=== PATIENT | female | born 1960 | race Caucasian/White ===

== ENCOUNTER 2018-05-12 15:35 | Emergency (ER) | payer OTHER ==
[2018-05-12 16:28] LABS: ADD MAN DIFF? NO
[2018-05-12] MEDS: KETOROLAC 30 MG INJ IV (16:31)
[2018-05-12 16:32] LABS: BASOPHIL # 0.1 10^3/ul (0.0-0.1); BASOPHILS % 0.3 % (0.0-2.0); EOSINOPHILS % 0.1 % (0.0-7.0); HEMOGLOBIN 12.3 g/dl (12.0-16.0); LYMPHOCYTES # 0.7 10^3/ul (0.8-2.9); LYMPHOCYTES % 4.4 % (15.0-51.0); MEAN CORPUSCULAR HEMOGLOBIN 31.9 pg (29.0-33.0); MEAN CORPUSCULAR HGB CONC 33.2 g/dl (32.0-37.0); MEAN CORPUSCULAR VOLUME 95.9 fl (82.0-101.0); MEAN PLATELET VOLUME 8.3 fl (7.4-10.4); MONOCYTE # 0.8 10^3/ul (0.3-0.9); NEUTROPHIL # 13.6 10^3/ul (1.6-7.5); NEUTROPHILS % 89.8 % (39.0-77.0); PLATELET COUNT 223 10^3/UL (140-415); RED BLOOD COUNT 3.86 10^6/ul (4.20-5.40); RED CELL DISTRIBUTION WIDTH 12.3 % (11.5-14.5)
[2018-05-12 16:32] LABS: WHITE BLOOD COUNT 15.2 10^3/ul (4.8-10.8)
[2018-05-12] MEDS: CEFTRIAXONE 1 GM/50 ML (PMX) 50 ML IVPB (16:32)
[2018-05-12] MEDS: ACETAMINOPHEN 500 MG TAB PO (16:32)
[2018-05-12] MEDS: SODIUM CHLORIDE 0.9% 1L BAG IV* (16:33)
[2018-05-12 16:50] LABS: ALANINE AMINOTRANSFERASE 36 IU/L (13-69); ALBUMIN/GLOBULIN RATIO 1.53; ALKALINE PHOSPHATASE 61 IU/L (42-121); ANION GAP 10 (5-13); ASPARTATE AMINO TRANSFERASE 34 IU/L (15-46); BILIRUBIN,INDIRECT 0.4 mg/dl (0-1.1); BILIRUBIN,TOTAL 0.4 mg/dl (0.2-1.3); BLOOD UREA NITROGEN 18 mg/dl (7-20); CALCIUM 9.8 mg/dl (8.4-10.2); CARBON DIOXIDE 27 mmol/L (21-31); CHLORIDE 101 mmol/L (97-110); CREATININE 0.75 mg/dl (0.44-1.00); GLUCOSE 111 mg/dl (70-220); SODIUM 138 mmol/L (135-144); TOTAL PROTEIN 6.6 g/dl (6.1-8.1)
[2018-05-12] MEDS: AZITHROMYCIN 500MG/NS (PMX) 250 ML IV (17:04)
[2018-05-12] MEDS: ALBUTEROL 0.083% (NEB) 2.5 MG/3 ML AMP NEB (17:10)
[2018-05-12] MEDS: IPRATROPIUM (NEB) 0.5 MG/2.5 ML AMP NEB (17:11)
== END 2018-05-12 18:35 | disposition home or self-care (01) ==
LOC: E/R 15:35
DX: J06.9 Acute upper respiratory infection, unspecified (principal); A41.9 Sepsis, unspecified organism
CPT/HCPCS: 71045; 80053; 83605; 85025; 87040; 87400; 94664; 96374; 96375; 99284-25